=== PATIENT | female | born 1995 | race Caucasian/White ===

== ENCOUNTER 2016-04-17 18:05 | Emergency (ER) | payer OTHER ==
[~2016-04-17] VITALS: Ht 154.9 cm; Wt 106.8 kg
[~2016-04-17 18:05] MED LIST: ADRENACLIC0.15 MG/0.; ATORVASTATIN CA10 MG PO; BIAXIN250 MG PO; BUSPAR5 MG PO; CITRATE OF MAG296 ML PO; CLONIDINE HCL0.1 MG PO; COLACE100 MG PO; CONCERTA36 MG PO; DEPAKOTE500 MG PO; DEPO-PROVER150 MG/ML IM; DEPO-PROVER400 MG/ML IM; DEPO-SUBQ104 MG/0.6 SQ; DUCODYL5 MG PO; EPIPEN ADU0.3 MG/0.3 IM; GEODON40 MG PO; GEODON60 MG PO; IMITREX50 MG PO; INTUNIV4 MG PO; KEFLEX500 MG PO; KETOCONAZOLE60 GM TP; LAC-HYDRIN 12%140 GM TP; LOTRIMIN CREAM15 GM PO; MAXALT10 MG PO; MEDROL DOSEPAK4 MG PO; METFORMIN HCL500 MG PO; MIRALAX17 GM PO; ONDANSETRON HCL8 MG PO; PHENERGAN25 MG PR; PREDNISONE20 MG PO; PRILOSEC20 MG PO; PRILOSEC40 MG PO; PROMETHAZI6.25 MG/5 PO; PROMETHAZINE HC25 M1 PO; PROZAC20 MG PO; PROZAC40 MG PO; RISPERDAL0.5 MG PO; RISPERDAL1 MG PO; SEROQUEL12.5 MG PO; SUMATRIPTAN SUC50 MG PO; SYNTHROID25 MCG PO; TESSALON PERLE100 MG PO; TOPAMAX100 MG PO; TOPAMAX25 MG PO; TOPAMAX50 MG PO; TRI-SPRINTEC1 EACH PO; TUSSIN DM PO; TYLENOL WITH C1 EACH PO; VICODIN 5-3001 EACH PO; VITAMIN D-32000 UNI1 PO; VYVANSE20 MG PO; VYVANSE30 MG PO; ZANTAC150 MG PO; ZITHROMAX Z-PA250 MG PO; ZOFRAN ODT8 MG PO; ZOFRAN4 MG PO; ZOLOFT25 MG PO; ZYRTEC10 M2 PO
[2016-04-17] MEDS ORDERED: ATARAX,VISTARIL50 MG PO (19:02)
[2016-04-17 21:34] VITALS: BP 125/69
== END 2016-04-17 21:33 | disposition home or self-care (01) ==
LOC: EME 18:05
DX: S90.31XA Contusion of right foot, initial encounter (principal); W20.8XXA Other cause of strike by thrown, projected or falling object, initial encounter; N91.2 Amenorrhea, unspecified; Z32.02 Encounter for pregnancy test, result negative
CPT/HCPCS: 73630; 84702; 99281; 99284

== ENCOUNTER 2016-05-13 17:58 | Emergency (ER) | payer OTHER ==
[~2016-05-13] VITALS: Ht 154.9 cm; Wt 110.2 kg
[~2016-05-13 17:58] MED LIST changes: +ATARAX,VISTARIL50 MG PO
[2016-05-13] MEDS ORDERED: SKELAXIN800 MG PO (21:02)
[2016-05-13 21:11] VITALS: BP 123/78
== END 2016-05-13 21:22 | disposition home or self-care (01) ==
LOC: EME 17:58
DX: S39.012A Strain of muscle, fascia and tendon of lower back, initial encounter (principal); J06.9 Acute upper respiratory infection, unspecified; W18.30XA Fall on same level, unspecified, initial encounter; Y92.26 Movie house or cinema as the place of occurrence of the external cause; Z91.040 Latex allergy status; Z88.6 Allergy status to analgesic agent; Z88.0 Allergy status to penicillin
CPT/HCPCS: 72100; 99281; 99283

== ENCOUNTER 2016-07-16 18:48 | Emergency (ER) | payer OTHER ==
[~2016-07-16] VITALS: Ht 154.9 cm; Wt 112.7 kg
[~2016-07-16 18:48] MED LIST changes: +SKELAXIN800 MG PO
[2016-07-16 21:06] VITALS: BP 108/66
== END 2016-07-16 21:07 | disposition home or self-care (01) ==
LOC: EME 18:48
DX: S93.401A Sprain of unspecified ligament of right ankle, initial encounter (principal); W01.0XXA Fall on same level from slipping, tripping and stumbling without subsequent striking against object, initial encounter; Y93.6A Activity, physical games generally associated with school recess, summer camp and children
CPT/HCPCS: 73610; 73630; 99281; 99284

== ENCOUNTER 2016-11-30 00:50 | Emergency (ER) | payer OTHER ==
[~2016-11-30] VITALS: Ht 157.5 cm; Wt 116.5 kg
[2016-11-30] MEDS ORDERED: NAPROSYN500 MG PO (01:58)
[2016-11-30 02:47] VITALS: BP 134/98
== END 2016-11-30 02:49 | disposition home or self-care (01) ==
LOC: EME 00:50
DX: S80.12XA Contusion of left lower leg, initial encounter (principal); W17.89XA Other fall from one level to another, initial encounter; Z91.040 Latex allergy status; Z88.0 Allergy status to penicillin; Z88.8 Allergy status to other drugs, medicaments and biological substances
CPT/HCPCS: 73590; 99281; 99284

== ENCOUNTER 2016-12-07 15:21 | Emergency (ER) | payer OTHER ==
[~2016-12-07] VITALS: Ht 154.9 cm; Wt 117.0 kg
[~2016-12-07 15:21] MED LIST changes: +NAPROSYN500 MG PO
[2016-12-07] MEDS ORDERED: BENADRYL50 MG PO (17:33)
[2016-12-07 17:45] VITALS: BP 101/72
== END 2016-12-07 17:55 | disposition home or self-care (01) ==
LOC: EME 15:21
DX: G24.09 Other drug induced dystonia (principal); M62.838 Other muscle spasm; F31.9 Bipolar disorder, unspecified; F90.9 Attention-deficit hyperactivity disorder, unspecified type; F70 Mild intellectual disabilities; M41.9 Scoliosis, unspecified; Z88.0 Allergy status to penicillin; Z91.040 Latex allergy status; Z88.8 Allergy status to other drugs, medicaments and biological substances
CPT/HCPCS: 99281; 99284

== ENCOUNTER 2016-12-07 19:44 | Emergency (ER) | payer OTHER ==
[~2016-12-07] VITALS: Ht 154.9 cm; Wt 117.0 kg
[~2016-12-07 19:44] MED LIST changes: +BENADRYL50 MG PO
[2016-12-07 22:40] VITALS: BP 118/76
== END 2016-12-07 22:41 | disposition home or self-care (01) ==
LOC: EME 19:44
DX: G24.09 Other drug induced dystonia (principal); F31.9 Bipolar disorder, unspecified; F90.9 Attention-deficit hyperactivity disorder, unspecified type; M41.9 Scoliosis, unspecified; F70 Mild intellectual disabilities; Z91.040 Latex allergy status; Z88.0 Allergy status to penicillin; Z88.8 Allergy status to other drugs, medicaments and biological substances
CPT/HCPCS: 70450; 99281; 99284

== ENCOUNTER 2016-12-09 14:48 | Emergency (ER) | payer OTHER ==
[~2016-12-09] VITALS: Ht 154.9 cm; Wt 120.3 kg
[2016-12-09 21:35] VITALS: BP 106/72
== END 2016-12-09 21:40 | disposition home or self-care (01) ==
LOC: EME 14:48
DX: G24.09 Other drug induced dystonia (principal); T43.595A Adverse effect of other antipsychotics and neuroleptics, initial encounter; F90.9 Attention-deficit hyperactivity disorder, unspecified type; F70 Mild intellectual disabilities; F31.9 Bipolar disorder, unspecified
CPT/HCPCS: 99281; 99285; J0515; J1200

== ENCOUNTER 2017-02-26 02:11 | Emergency (ER) | payer OTHER ==
[~2017-02-26] VITALS: Ht 154.9 cm; Wt 114.4 kg
[2017-02-26] MEDS ORDERED: PREDNISONE10 MG PO (03:13)
[2017-02-26] MEDS ORDERED: BENADRYL50 MG PO (03:13)
[2017-02-26 03:18] VITALS: BP 125/83
== END 2017-02-26 03:19 | disposition home or self-care (01) ==
LOC: EME 02:11
DX: H57.8 Other specified disorders of eye and adnexa (principal); T42.6X5A Adverse effect of other antiepileptic and sedative-hypnotic drugs, initial encounter; F90.9 Attention-deficit hyperactivity disorder, unspecified type; F31.9 Bipolar disorder, unspecified; Z96.22 Myringotomy tube(s) status; Z88.6 Allergy status to analgesic agent; Z88.0 Allergy status to penicillin; Z88.8 Allergy status to other drugs, medicaments and biological substances
CPT/HCPCS: 99281; 99283; J7512

== ENCOUNTER 2017-03-19 16:09 | Emergency (ER) | payer OTHER ==
[~2017-03-19] VITALS: Ht 154.9 cm; Wt 113.5 kg
[~2017-03-19 16:09] MED LIST changes: +PREDNISONE10 MG PO
[2017-03-19] MEDS ORDERED: ZOFRAN ODT8 MG PO (18:04)
[2017-03-19 18:15] VITALS: BP 121/84
== END 2017-03-19 18:15 | disposition home or self-care (01) ==
LOC: EME 16:09
DX: R11.0 Nausea (principal); M41.9 Scoliosis, unspecified; F90.9 Attention-deficit hyperactivity disorder, unspecified type; F31.9 Bipolar disorder, unspecified; Z88.6 Allergy status to analgesic agent; Z88.0 Allergy status to penicillin; Z91.040 Latex allergy status; Z91.041 Radiographic dye allergy status; Z88.8 Allergy status to other drugs, medicaments and biological substances
CPT/HCPCS: 80053; 81003; 84702; 85027; 99281; 99283

== ENCOUNTER 2017-06-06 20:18 | Emergency (ER) | payer OTHER ==
[~2017-06-06] VITALS: Ht 154.9 cm; Wt 111.5 kg
[2017-06-06 22:06] VITALS: BP 139/87
== END 2017-06-06 22:06 | disposition home or self-care (01) ==
LOC: EME 20:18
DX: S50.12XA Contusion of left forearm, initial encounter (principal); W19.XXXA Unspecified fall, initial encounter; Y93.89 Activity, other specified; Z91.040 Latex allergy status; Z88.0 Allergy status to penicillin; Z88.6 Allergy status to analgesic agent; Z88.8 Allergy status to other drugs, medicaments and biological substances
CPT/HCPCS: 73090; 73130; 99281; 99284